=== PATIENT | male | born 1965 | race Caucasian/White ===

== ENCOUNTER 2018-06-13 09:21 | Outpatient (REF) | payer BC, SELFPAY ==
[2018-06-13 13:18] LABS: Glucose 96 mg/dL (70-100)
== END 2018-06-13 09:41 ==
LOC: NCHCN 09:21
PROVIDERS: Visit Provider Nurse Practitioner
DX: Z00.00 Encounter for general adult medical examination without abnormal findings (principal); Z83.3 Family history of diabetes mellitus; Z13.1 Encounter for screening for diabetes mellitus
CPT/HCPCS: 82947

== ENCOUNTER 2020-05-04 14:05 | Outpatient (REF) | payer BC, SELFPAY ==
[2020-05-07 19:41] LABS: SARS-CoV-2 RNA Undetected (Undetected)
== END 2020-05-04 14:25 ==
LOC: NCHCN 14:05
PROVIDERS: Visit Provider Nurse Practitioner Family
DX: Z20.828 Contact with and (suspected) exposure to other viral communicable diseases (principal)
CPT/HCPCS: U0003

== ENCOUNTER 2020-07-08 17:57 | Outpatient (REF) | payer BC, SELFPAY ==
[2020-07-08 20:41] LABS: HCT 43.2 % (40.0-50.0); HGB 13.8 g/dL (13.5-17.5); MCH 29.6 pg (27.0-33.0); MCHC 31.9 % (32.0-36.0); MCV 92.7 fL (80-95); MPV 10.7 fL (8.0-11.0); Platelet Count 496 10^3/uL (130-400); RBC 4.66 10^6/uL (4.36-5.78); RDW 13.6 % (11.8-14.1); RDW-SD 46.4 fL; WBC 7.49 10^3/uL (4.4-10.8)
[2020-07-08 21:12] LABS: Anion Gap 8.1 mmol/L (3-11); BUN 19 mg/dL (7-18); CO2 27.9 mmol/L (21.0-32.0); CREATININE 0.94 mg/dL (0.70-1.30); Calcium 8.8 mg/dL (8.5-10.1); Calculated LDL 84 mg/dL (<100); Chloride 107 mmol/L (98-107); Cholesterol 173 mg/dL (<200); Glucose 88 mg/dL (74-106); HDL Cholesterol 79 mg/dL (40-60); Potassium 4.3 mmol/L (3.5-5.1); Sodium 143 mmol/L (136-145); Triglyceride 51 mg/dL (<150)
== END 2020-07-08 18:17 ==
LOC: NCHCN 17:57
PROVIDERS: Visit Provider Nurse Practitioner Family
DX: Z00.00 Encounter for general adult medical examination without abnormal findings (principal)
CPT/HCPCS: 80048; 80061; 85027

== ENCOUNTER 2020-07-19 10:17 | Outpatient (CLI) | payer BC, SELFPAY ==
--- NOTE | 2020-07-19 08:30 | DI.RAD_ITS ---
EXAM: XR ANKLE RT COMPLETE CLINICAL HISTORY: ankle pain. TECHNIQUE: 2D digital imaging was performed. COMPARISON: No exams were available for comparison FINDINGS: BONES: No acute fracture is present. No bony destructive lesion is seen. JOINTS: The ankle mortise is normally aligned. SOFT TISSUE: Normal. IMPRESSION: Unremarkable radiographs of the right ankle. DATA REPOSITORY: RADIATION DOSE DELIVERED:
== END 2020-07-19 10:37 ==
PROVIDERS: Visit Provider Physician Assistant
DX: M25.571 Pain in right ankle and joints of right foot (principal)
CPT/HCPCS: 73610

== ENCOUNTER 2020-11-18 22:02 | Outpatient (REF) | payer BC, SELFPAY ==
[2020-11-18 20:54] LABS: Abs Immature Grans 0.05 10^3/uL (0.0-0.06); Absolute Basophil Count 0.07 10^3/uL (0.0-0.2); Absolute Eosinophil Count 0.16 10^3/uL (0.0-0.7); Absolute Lymphocyte Count 2.94 10^3/uL (1.2-3.4); Absolute Monocyte Count 0.61 10^3/uL (0.1-0.8); Basophils % 0.8; Eosinophils % 1.9; HCT 43.8 % (40.0-50.0); HGB 14.3 g/dL (13.5-17.5); Immature Grans % 0.6; Lymphocytes % 34.5; MCH 30.1 pg (27.0-33.0); MCHC 32.6 % (32.0-36.0); MCV 92.2 fL (80-95); MPV 10.1 fL (8.0-11.0); Monocytes % 7.2; Nucleated RBC 0 %; Platelet Count 526 10^3/uL (130-400); RBC 4.75 10^6/uL (4.36-5.78); RDW 13.2 % (11.8-14.1); RDW-SD 45.3 fL; WBC 8.53 10^3/uL (4.4-10.8)
[2020-11-18 21:02] LABS: C-Reactive Protein < 0.05 mg/dL (0.0-0.3)
[2020-11-19 10:05] LABS: ESR 4 mm/hr (<or=20)
[2020-11-23 17:41] LABS: JAK2 Result see interpretation
== END 2020-11-18 22:03 | disposition home or self-care (01) ==
LOC: NCHCN 22:02
PROVIDERS: Visit Provider Nurse Practitioner Family
DX: D47.3 Essential (hemorrhagic) thrombocythemia (principal)
CPT/HCPCS: 85652; 81270; 85025; 86140

== ENCOUNTER 2020-11-29 02:06 | Outpatient (CLI) | payer BC, SELFPAY ==
--- NOTE | 2020-11-29 | DI.US_ITS ---
EXAM: US RENAL CLINICAL HISTORY: FAMILY HISTORY OF KIDNEY CA,Z80.51. TECHNIQUE: Ramirez scale, color and spectral Doppler were used. COMPARISON: No exams were available for comparison FINDINGS: Renal size in cm: Right: 10.1. Left: 11.5. Echogenicity: Normal. Hydronephrosis: No. Cyst or mass: Bilateral parapelvic cysts. Nephrolithiasis: No. Other findings: Incidental note is made of a 1 cm cyst in the right lobe of the liver. Bladder:Normal. Ureteral jets: Right: Visualized and unremarkable. Left: Visualized and unremarkable. Prevoid vol:71 cc Postvoid vol:7 cc Prostate: 28 cc Renal color flow: Symmetric and within normal limits. IMPRESSION: 1. No evidence of a renal mass or hydronephrosis sonographically. 2. Mild enlarged prostate gland. 3. Bilateral parapelvic cysts. DATA REPOSITORY:
== END 2020-11-29 02:26 ==
PROVIDERS: PCP Nurse Practitioner Family; Visit Provider Nurse Practitioner Family
DX: Z80.51 Family history of malignant neoplasm of kidney (principal); N40.0 Benign prostatic hyperplasia without lower urinary tract symptoms; N28.1 Cyst of kidney, acquired
CPT/HCPCS: 76770

== ENCOUNTER 2021-09-25 15:33 | Outpatient (REF) | payer BC, SELFPAY ==
[2021-09-26 10:05] LABS: Hepatitis C Ab w Rflx HCV PCR Negative (Negative)
== END 2021-09-25 15:34 | disposition home or self-care (01) ==
LOC: NCHCN 15:33
PROVIDERS: Visit Provider Nurse Practitioner Family
DX: Z11.59 Encounter for screening for other viral diseases (principal)
CPT/HCPCS: 86803

== ENCOUNTER 2022-07-27 09:05 | Day surgery (SDC) | payer BC, SELFPAY ==
[2022-07-27 09:30] VITALS: BP 127/82; PULSE 56; RESP 16; TEMP 36.8; O2SAT 98
[2022-07-27] MEDS: Lactated Ringers 1,000 ML 80 ML IV (10:03)
--- NOTE | 2022-07-27 10:17 | W.ANESPRE ---
General Info Date of Service Date Performed: 07/27/22 Height: 5 ft 7 in Weight: 82.8 kg Body Mass Index (BMI): 28.5 Surgical Procedure: Operation Date: 07/27/22 11:05 Proposed Procedure Side Surgeon p Colonoscopy Kate Garcia MD Meds Allergies and Home Medications Allergies Allergy/AdvReac Type Severity Reaction Status Date / Time influenza virus vaccine tv Allergy Severe Verified 07/27/22 09:45 split 2012- (5 yr,up) [From Afluria] morphine Allergy Severe BRONCHO Verified 07/27/22 09:45 CONSTRICTION Home Medication Medication Instructions Recorded aspirin 81 mg tablet,delayed 81 mg PO DAILY 11/10/21 release bisacodyl 5 mg tablet,delayed 5 mg PO ONCE colonscopy bowel prep 07/16/22 release (Dulcolax (bisacodyl)) #4 tabs polyethylene glycol 3350 17 238 g PO ONCE colonoscopy prep 07/16/22 gram/dose oral powder #238 grams Current Visit Medications: Current Medications Generic Name Dose Route Start Last Admin Trade Name Silvia PRN Reason Stop Dose Admin Hyoscyamine Sulfate 0.125 mg 07/27/22 10:16 Hyoscyamine 0.125 Mg Sl/Oral/Chew SL DIRECTED PRN Ringer's Solution 1,000 mls @ 80 mls/hr 07/27/22 06:00 07/27/22 10:03 IV 07/27/22 23:59 80 mls/hr INFUSION CARLOS Administration IV Miscellaneous Supplies 1 each 07/27/22 06:00 Iv Access IV 07/27/22 23:59 DIRECTED CARLOS Ondansetron HCl 4 mg 07/27/22 10:16 Ondansetron 4 Mg/2 Ml Vial IVP Q4H PRN PRN Nausea / Vomiting Sodium Chloride 0 ml 07/27/22 06:00 Normal Saline Flush 10 Ml Syr IV 07/27/22 23:59 PRN PRN Sodium Chloride 0 ml 07/27/22 06:00 Normal Saline 10 Ml Vial IJ 07/27/22 23:59 DIRECTED PRN Sterile Water 0 ml 07/27/22 06:00 Water,Injection,Sterile 10 Ml Vial IJ 07/27/22 23:59 DIRECTED PRN PFSH Active Problems Active Problems: Problem Status Onset Code Diverticular hemorrhage K57.31 Essential thrombocythemia D47.3 Obesity E66.9 Achilles tendonosis of right lower extremity M67.88 Medical History Medical History Anxiety and depression Asthma, exercise induced Family history of kidney cancer Hearing loss, bilateral Lower back pain Multiple benign nevi Seasonal allergies Tubular adenoma of colon (04/01/17) Surgical History Surgical History Colonoscopy - IV Sedation (04/01/17) Repair of inguinal hernia Tonsillectomy Tobacco Smoking/Tobacco Use Status: Former Tobacco Use Alcohol Alcohol Intake: current Alcohol intake frequency: a few times a week Substance Use Substance use: Never Vital Signs and Lab Results Vital Signs Most Recent Vital Signs in EMR: Most Recent Vital Signs Temp Pulse Resp BP Pulse Ox 36.8 C 56 L 16 127/82 98 07/27/22 09:30 07/27/22 09:30 07/27/22 09:30 07/27/22 09:30 07/27/22 09:30 Lab Results Blood Type / Crossmatch: No Data to Display Complete Blood Count: No Data to Display Complete Metabolic Panel: No Data to Display Liver Function Panel: No Data to Display Coagulation Panel: No Data to Display Cardiac Panel: No Data to Display Arterial Blood Gas: No Data to Display Venous Blood Gas: No Data to Display Pancreas Panel: No Data to Display Thyroid Panel: No Data to Display Infectious Disease: No Data to Display Blood Cultures: No Data to Display Toxicology Panel: No Data to Display Anesthesia Assessment and Plan Anesthesia History Personal History: No History of Anesthesia Complications Family History: No Family History of Anesthesia Complications Exercise Tolerance Exercise Tolerance: Metabolic Equivalents>4 Pertinent Negatives Pertinent Negatives: No Symptoms of GERD and No Major Cardiovascular Symptoms or Complaints Cardiac & Pulmonary Exam Cardiac Exam: Normal S1/S2 Heart Sounds Pulmonary Exam: Clear Bilateral Breath Sounds Implantable Cardiac Device Does patient have a Pacemaker or an ICD?: No Airway Exam Known Difficult Airway: No Mallampati Class: 1 Mouth Opening: Normal (> 3cm) Thyromental Distance: Greater than 3 cm Neck Range of Motion: Full ROM Neck Circumference: Normal Teeth Condition: Normal Dentition ASA Classification ASA Score: ASA 2 Emergency Case?: No NPO Status NPO Status: NPO Clears >2 hours, Solids >8 hours Anesthesia Plan Resuscitation Status: Full Code Anesthesia Technique: General Anesthesia Airway Planned: Natural Airway Monitors Used: Standard Monitors
[2022-07-27 10:19] VITALS: BMI 28.5
--- NOTE | 2022-07-27 11:00 | W.COLOREPORT ---
Date of service: 07/27/22 Time of Service: 11: Colonoscopy Report Date of procedure: 07/27/22 Pre-op diagnosis general: screening, hx of polyp Post-op diagnosis procedure note: other (polyp) Procedure: Colonoscopy with polypectomy Surgeon: Kate Garcia Anesthesia Type: General:No Airway Estimated blood loss (mL): 3 Pathology: none sent Complications: None Disposition: same day Indications: Pt seen at the request of PCP regarding colon cancer screening. Pt has? had colon cancer screening before.? They denies problems with constipation or diarrhea.? They deny any pain or difficulty with bowel movements, or rectal bleeding.? There is no family history of any colon cancer.? Pt has not had any unexplained weight loss.? Their appetite is good.? ?They deny heart, lung, or kidney problems. They are not having heartburn or indigestion. They have not had any prior colo-rectal surgery.? ? They deny any problems with anesthesia in the past. Prep: Miralax/Dulcolax Procedure Start Time: :11 Procedure End Time: :33 Retraction Time: 13 minutes Findings: one sigmoid polyp Procedure Description: After informed consent was obtained the patient was taken to the procedure room and placed in a left decubitous position. Monitors were applied and a time out was done. The patients name, date of , procedure, allergies to medications and metal in their body was reviewed. The patient was then sedated. Once sedated and comfortable a rectal exam was done. External exam was normal. Internal exam revealed a normal sphincter tone and no palpable masses. The prostate felt smooth. The scope was then introduced and retro-flexed. No internal hemorrhoids, polyps or masses were identified on retro-flexion. The scope was then advanced to the cecum without difficulty. The ileocecal vlave and appendiceal orifice were identified. The prep was good. The scope was then slowly retracted over 13 minutes back into the rectum. Polyps were removed with cold forceps in the distal sigmoid colon. There was no diverticulosis noted. The scope was removed and the patient was woken up and taken back to Same day surgery in stable condition. The patient tolerated the procedure well and there were no immediate complications.
--- NOTE | 2022-07-27 11:06 | W.PM.DSUDISC ---
Date of service: 07/27/22 Time of Service: 11:11 Discharge Plan Disposition Patient Disposition: HOME Condition: Good Discharge Details Reason For Visit: colonoscopy Attending Provider: Kate Garcia Primary Care Provider: Gabby Mares Home Meds and New Rx's Prescriptions: Continued aspirin 81 mg tablet,delayed release (DR/EC) 81 mg PO DAILY Discontinued polyethylene glycol 3350 17 gram/dose powder 238 g PO ONCE Qty: 238 0RF Rx Instructions: take per colonoscopy instructions bisacodyl [Dulcolax (bisacodyl)] 5 mg tablet,delayed release (DR/EC) 5 mg PO ONCE Qty: 4 0RF Rx Instructions: take per colonoscopy instructions Discharge Instructions Additional Instructions: Findings: one polyp Follow up: 5 years more then likely Please call if you develop: fevers >101.5 Nausea or Vomiting Abdominal pain that is not transient Rectal bleeding that is more then a tbsp A hard abdomen and inability to pass gas DAY SURGERY UNIT POST ENDOSCOPY INSTRUCTIONS Instructions for everyone who is given Anesthesia: For your safety, please do the following for the next 24 Hours: a. Do not drive or operate dangerous equipment b. Do not drink alcohol beverages or use any recreational drugs for the first 24 hours or while taking pain medications. The medications in your body may have a reaction that can be dangerous. c. Do not make any important decisions or sign any important papers 1. Generally there are no restrictions on your activity after a day or so has gone by, but you may feel a bit fatigued for a few days. 2. After you arrive home you may have a light meal and return to a normal diet as you can tolerate it without feeling sick to your stomach. 3. After surgery, you may feel pain or discomfort. This should be only transient, but if it persists please contact your doctor. 4. If there are any questions regarding the findings of your procedure, please feel free to contact your doctor. 6. If you are unable to contact your doctor with a problem, contact the hospital at [phone]. 7. Continue all your regular medications unless directed otherwise. I understand the above instructions and have no questions. Signature of Patient or Responsible Adult Escort Date/Time Name of Responsible Adult Escort Signature of Nurse Date/Time Activity:: Activity as Tolerated Equipment/Supplies:: No Equipment Needed Diet:: As Tolerated
--- NOTE | 2022-07-27 11:31 | BOWEL_PTH ---
PATIENT: Darshan Fall LOC: [facility] U#:[id number] AGE/SX: 56/M ROOM: RE07/27/[address]: Kate Garcia MD : [id number] BED: DIS: 07/27/2022 SPEC #: [id number] RECD: 07/27/22 13:21 STATUS: TANIA REQ #: [id number] ERNESTINE: 07/27/22 11:[address]: Kate Garcia DEPT: Surgical Specimen RECD BY: Yari Granados ENTERED: 07/27/22 13:22 SP TYPE: Bowel OTHR DR: Gabby Mares Tissues: 1 - BIOPSY BOWEL Procedures: GROSS AND MICRO LEVEL 4 Comments: [id number]
[2022-07-27 11:36] VITALS: BP 101/59; PULSE 62; RESP 16; TEMP 36.5; O2SAT 98
--- NOTE | 2022-07-27 11:48 | W.ANESPOSTOP ---
Postoperative Evaluation Date, Time and Location Date Performed: 07/27/22 Time Performed: 11:49 Patient Location: Day Surgery Unit Vital Signs Most Recent Imported Vital Signs: Most Recent Vital Signs Temp Pulse Resp BP Pulse Ox 36.5 C 62 16 101/59 L 98 07/27/22 11:36 07/27/22 11:36 07/27/22 11:36 07/27/22 11:36 07/27/22 11:36 Assessment Mental Status: Awake (Alert & Oriented to Patient Baseline) Airway and Respiratory Function: Patent airway with normal (patient baseline) respiratory exam Cardiovascular Function: Hemodynamically Stable Hydration Status: Adequately Hydrated Nausea & Vomiting: No Nausea or Vomiting Pain: Pt. Denies Any Pain Peripheral Nerve Block: Patient did not receive a nerve block
[2022-07-27 12:14] VITALS: BP 118/87; PULSE 61; RESP 16; TEMP 36.4; O2SAT 99
== END 2022-07-27 12:32 | disposition home or self-care (01) ==
PROVIDERS: PCP Nurse Practitioner Family; Visit Provider Surgery
PROC: 0DJD8ZZ Inspection of Lower Intestinal Tract, Via Natural or Artificial Opening Endoscopic (ICD-10-PCS; CPT 45378; principal; 2022-07-27 11:00)
DX: Z12.11 Encounter for screening for malignant neoplasm of colon (principal); K63.5 Polyp of colon
CPT/HCPCS: 45380; 88305; J2704

== ENCOUNTER 2023-06-18 19:11 | Outpatient (REF) | payer BC, SELFPAY ==
[2023-06-18 15:08] LABS: Abs Immature Grans 0.03 10^3/uL (0.0-0.06); Absolute Basophil Count 0.06 10^3/uL (0.0-0.2); Absolute Eosinophil Count 0.12 10^3/uL (0.0-0.7); Absolute Lymphocyte Count 1.22 10^3/uL (1.2-3.4); Absolute Monocyte Count 0.39 10^3/uL (0.1-0.8); Absolute Neutrophil Count 5.87 10^3/uL (1.2-6.7); Basophils % 0.8; Eosinophils % 1.6; HCT 44.5 % (40.0-50.0); HGB 14.6 g/dL (13.5-17.5); Immature Grans % 0.4; Lymphocytes % 15.9; MCH 29.4 pg (27.0-33.0); MCHC 32.8 % (32.0-36.0); MCV 90 fL (80-95); MPV 10.2 fL (8.0-11.0); Monocytes % 5.1; Neutrophils % 76.2; Platelet Count 499 10^3/uL (130-400); RBC 4.97 10^6/uL (4.36-5.78); RDW 13.3 % (11.8-14.1); RDW-SD 43.7 fL; WBC 7.69 10^3/uL (4.4-10.8)
[2023-06-18 15:29] LABS: ALT 24 U/L (16-63); AST 21 U/L (15-37); Albumin 4.4 g/dL (3.4-5.0); Alkaline Phosphatase 58 U/L (46-116); Anion Gap 11.7 mmol/L (3-11); BUN 21 mg/dL (7-18); Bilirubin, Total 0.5 mg/dL (0.2-1.0); CO2 24.3 mmol/L (21.0-32.0); CREATININE 1.1 mg/dL (0.70-1.30); Chloride 104 mmol/L (98-107); Estimated GFR 78.79 (mL/min/1.73m2); Glucose 98 mg/dL (74-106); Potassium 4.8 mmol/L (3.5-5.1); Sodium 140 mmol/L (136-145); TSH (W/Ref FT4) 1.81 uIU/mL (0.36-3.74); Total Protein 7.5 g/dL (6.4-8.2)
== END 2023-06-18 19:12 | disposition home or self-care (01) ==
LOC: NCHCN 19:11
PROVIDERS: PCP Family Medicine; Visit Provider Family Medicine
DX: Z00.00 Encounter for general adult medical examination without abnormal findings (principal); D47.3 Essential (hemorrhagic) thrombocythemia
CPT/HCPCS: 80053; 84443; 85025

== ENCOUNTER 2024-03-11 17:34 | Outpatient (REF) | payer BC, SELFPAY ==
[2024-03-11 22:35] LABS: ALT 38 U/L (16-63); AST 28 U/L (15-37); Abs Immature Grans 0.06 10^3/uL (0.0-0.06); Absolute Basophil Count 0.08 10^3/uL (0.0-0.2); Absolute Eosinophil Count 0.32 10^3/uL (0.0-0.7); Absolute Monocyte Count 0.57 10^3/uL (0.1-0.8); Absolute Neutrophil Count 3.74 10^3/uL (1.2-6.7); Alkaline Phosphatase 73 U/L (46-116); Anion Gap 7.5 mmol/L (3-11); BUN 18 mg/dL (7-18); Bilirubin, Total 0.34 mg/dL (0.2-1.0); CO2 27.5 mmol/L (21.0-32.0); CREATININE 0.9 mg/dL (0.70-1.30); Chloride 106 mmol/L (98-107); Eosinophils % 4.1 %; Estimated GFR 99.62 (mL/min/1.73m2); Glucose 93 mg/dL (74-106); HCT 41.9 % (40.0-50.0); HGB 13.8 g/dL (13.5-17.5); Immature Grans % 0.8 %; Lymphocytes % 38.6 %; MCH 30.2 pg (27.0-33.0); MCHC 32.9 % (32.0-36.0); MCV 92 fL (80-95); MPV 10.5 fL (8.0-11.0); Monocytes % 7.3 %; Neutrophils % 48.2 %; Platelet Count 503 10^3/uL (130-400); Potassium 4.8 mmol/L (3.5-5.1); RBC 4.57 10^6/uL (4.36-5.78); RDW 13.9 % (11.8-14.1); RDW-SD 46.8 fL; Sodium 141 mmol/L (136-145); Total Protein 6.8 g/dL (6.4-8.2); WBC 7.77 10^3/uL (4.4-10.8)
== END 2024-03-11 17:35 | disposition home or self-care (01) ==
LOC: NCHCN 17:34
PROVIDERS: PCP Family Medicine; Visit Provider Family Medicine
DX: D47.3 Essential (hemorrhagic) thrombocythemia (principal)
CPT/HCPCS: 80053; 85025

== ENCOUNTER 2025-06-23 09:57 | Outpatient (REF) | payer BC, SELFPAY ==
[2025-06-23 15:30] LABS: Calculated LDL 105 mg/dL (<100); Cholesterol 190 mg/dL (<200); Glucose 95 mg/dL (74-106); HDL Cholesterol 79 mg/dL (>or=40); Triglyceride 32 mg/dL (<150)
== END 2025-06-23 09:58 | disposition home or self-care (01) ==
LOC: NCHCN 09:57
PROVIDERS: PCP Family Medicine; Visit Provider Family Medicine
DX: Z00.00 Encounter for general adult medical examination without abnormal findings (principal)
CPT/HCPCS: 80061; 82947

== ENCOUNTER 2025-06-24 20:55 | Outpatient (REF) | payer BC, SELFPAY ==
[2025-06-24 21:14] LABS: HCT 42.0 % (40.0-50.0); HGB 13.8 g/dL (13.5-17.5); MCH 29.6 pg (27.0-33.0); MCHC 32.9 % (32.0-36.0); MCV 90 fL (80-95); MPV 10.4 fL (8.0-11.0); Platelet Count 496 10^3/uL (130-400); RBC 4.66 10^6/uL (4.36-5.78); RDW 13.7 % (11.8-14.1); RDW-SD 45.0 fL; WBC 9.52 10^3/uL (4.4-10.8)
== END 2025-06-24 20:56 | disposition home or self-care (01) ==
LOC: NCHCN 20:55
PROVIDERS: PCP Family Medicine; Visit Provider Family Medicine
DX: D47.1 Chronic myeloproliferative disease (principal)
CPT/HCPCS: 85027

== ENCOUNTER 2025-06-29 15:12 | Outpatient (REF) | payer BC, SELFPAY ==
[2025-06-30 18:13] LABS: PSA, Screening 1.0 ng/mL (<=3.5)
[2025-06-30 18:53] LABS: HIV-1/2 Ag & Ab Screen Negative (Negative)
== END 2025-06-29 15:13 | disposition home or self-care (01) ==
LOC: NCHCN 15:12
PROVIDERS: PCP Family Medicine; Visit Provider Family Medicine
DX: Z00.00 Encounter for general adult medical examination without abnormal findings (principal)
CPT/HCPCS: 84153; 87389

== ENCOUNTER 2025-07-01 03:49 | Outpatient (CLI) | payer BC, SELFPAY ==
--- NOTE | 2025-07-01 | DI.RAD_ITS ---
Exam(s) XR HIP LT COMPLETE AP PELVIS EXAM: XR HIP LT COMPLETE AP PELVIS CLINICAL HISTORY: LT HIP PAIN,M25.552. TECHNIQUE: 2D digital imaging was performed of the left hip. Two views were obtained. AP pelvis and lateral left hip views were obtained. COMPARISON: CR RIGHT HIP COMPLETE from 07/08/2008 FINDINGS: BONES: No acute fracture is present. No bony destructive lesion is seen. JOINTS: No dislocation present. There is marked narrowing of the superior joint space. Osteophytes are seen in the femoral head. The sacroiliac joints and symphysis pubis are unremarkable. SOFT TISSUE: Normal. IMPRESSION: Moderate osteoarthritis of the left hip. DATA REPOSITORY: RADIATION DOSE DELIVERED:
== END 2025-07-01 04:09 ==
PROVIDERS: PCP Family Medicine; Visit Provider Family Medicine
DX: M16.12 Unilateral primary osteoarthritis, left hip (principal)
CPT/HCPCS: 73502